=== PATIENT | female | born 1965 | race Two or more races ===

== ENCOUNTER 2025-05-22 07:18 | Emergency (ER) | payer MEDICAID, OTHER ==
[~2025-05-22] VITALS: Ht 149.9 cm; Wt 58.0 kg
--- NOTE | 2025-05-22 07:31 | ECG ---
[facility] Test Date: 2025-05-22 Test Time: 07:30:03 Pat Name: BROOKS BACA Department: Room: Gender: F Painting Manager: CARMELO : 1965 Requested By: KATHY DE LA TORRE Order Number: [id number] Reading MD: Alex Carmichael Measurements Intervals [place] Rate: 101 P: 70 VT: 127 QRS: 40 QRSD: 70 T: 63 QT: 356 QTc: 462 Interpretive Statements Sinus tachycardia Probable left atrial enlargement Baseline wander in lead(s) I,II,aVR,V2 Electronically Signed On 05-22-2025 15:09:01 PST by Alex Carmichael Please click the below link to view image of tracing.
--- NOTE | 2025-05-22 07:54 | ED.PDOC ---
History of Present Illness HPI Comments 59-year-old male presents to the ED with a chief complaint of dizziness onset 1 day. Patient states he has been experiencing dizziness, neck pain, headache for the past day, worsen this morning. Upon ED arrival, patient was hypertensive with BP of 163/93. Denies chest pain, shortness of breath, blurred vision, fever, chills, cough, congestion, nausea, vomiting, diarrhea, abdominal pain, dysuria, hematuria. No other symptoms or modifying factors present at this time. Chief Complaint: Dizziness Time Seen by MD: 07:40 Reviewed Notes: Medications, Allergies Allergies: Coded Allergies: NO KNOWN ALLERGIES (Unverified , 05/22/25) Information Source: Patient, Relative Mode of Arrival: Ambulatory Severity: Moderate Timing: Hours Duration: Since onset Prehospital treatment: None Past Medical History PAST MEDICAL HISTORY: DM, HTN Surgical History: Denies all surgeries Family History Family History: Reviewed,noncontributory to illness, No family hx of Cancer, No family hx of DM, No family hx of Heart sawyer, No family hx of HTN, No family hx ofKidney sawyer, No family hx of Liver sawyer, No family hx of Lung sawyer, No family hx of Stroke Social History Smoker: Non-Smoker Alcohol: Denies ETOH Use Drugs: Denies Drug Use Lives In: Home Constitutional: denies: chills, diaphoresis, fatigue, fever, malaise, sweats, weakness, others EENTM: denies: blurred vision, double vision, ear bleeding, ear discharge, ear drainage, ear pain, ear ringing, eye pain, eye redness, hearing loss, mouth pain, mouth swelling, nasal discharge, nose bleeding, nose congestion, nose pain, photophobia, tearing, throat pain, throat swelling, voice changes, others Respiratory: denies: cough, hemoptysis, orthopnea, SOB at rest, shortness of breath, SOB with excertion, stridor, wheezing, others Cardiovascular: denies: chest pain, dizzy spells, diaphoresis, Dyspnea on exertion, edema, irregular heart beat, left arm pain, lightheadedness, palpitations, PND, syncope, others Gastrointestinal: denies: abdomen distended, abdominal pain, blood streaked bowels, constipated, diarrhea, dysphagia, difficulty swallowing, hematemesis, melena, nausea, poor appetite, poor fluid intake, rectal bleeding, rectal pain, vomiting, others Neurological: reports: dizziness, headache; denies: fainting, left sided numb ness, left sided weakness, numbness, paresthesia, pre-existing deficit, right sided numbness, right sided weakness, seizure, speech problems, tingling, tremors, weakness, others Musculoskeletal: reports: neck pain; denies: back pain, gout, joint pain, joint swelling, muscle pain, muscle stiffness, others Integumetry: denies: bruises, change in color, change in hair/nails, dryness, laceration, lesions, lumps, rash, wounds, others Allergic/Immunocompromised: denies: Difficulty Healing, Frequent Infections, Hives, Itching, others Hematologic/Lymphatic: denies: anemia, blood clots, easy bleeding, easy bruising, swollen glands, others Endocrine: denies: excessive hunger, excessive sweating, excessive thirst, excessive urination, flushing, intolerance to cold, intolerance to heat, unexplained weight gain, unexplained weight loss, others Psychiatric: denies: anxiety, bipolar disorder, depression, hopeless, panic disorder, schizophrenia, sleepless, suicidal, others All Other Systems: Reviewed and Negative Physical Exam General Appearance: Moderate Distress, Normal HEENT: Normal ENT Inspection, Pharynx Normal, TMs Normal Neck: Full Range of Motion, Non-Tender, Normal, Normal Inspection Respiratory: Chest Non-Tender, Lungs Clear, No Accessory Muscle Use, No Respiratory Distress, Normal Breath Sounds Cardiovascular: No Edema, No JVD, No Murmur, No Gallop, Normal Peripheral Pulses, Regular Rate/Rhythm Breast Exam: Deferred Gastrointestinal: No Organomegaly, Non Tender, No Pulsatile Mass, Normal Bowel Sounds, Soft Genitalia: Deferred Pelvic: Deferred Rectal: Deferred Extremities: No calf tenderness, Normal capillary refill, Normal inspection, Normal range of motion, Non-tender, No pedal edema Musculoskeletal : Apperance: Normal Neurologic: Alert, 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 Was a procedure done?: No EKG EKG : Pulse Rate (adult): 101 Cardiac Rhythm: ST Differential Dx Considerations may include: Anemia Electrolyte imbalance X-Ray, Labs, Meds, VS Vital Signs Date Time Temp Pulse Resp B/P (MAP) Pulse Ox O2 Delivery O2 Flow Rate FiO2 05/22/25 10:07 98.1 76 16 143/73 (96) 98 98.1 05/22/25 08:14 98.1 88 18 138/94 (109) 99 98.1 05/22/25 07:54 101 05/22/25 07:30 101 05/22/25 07:20 98.3 106 16 163/93 100 98.3 Lab Test 05/22/25 09:19 05/22/25 07:59 05/22/25 07:33 Range/Units Urine Color Light-yellow Yellow Urine Clarity Clear Clear Urine pH 6.0 5.0-9.0 Urine Specific [place] 1.010 1.001-1.035 Urine Protein Negative Negative Urine Ketones Negative Negative Urine Blood Negative Negative /uL Urine Nitrite Negative Negative Urine Bilirubin Negative Negative Urine Urobilinogen Normal Negative mg/dL Urine Leukocyte Esterase 1+ Negative /uL Urine RBC 1 0 - 4 /hpf Urine Microscopic WBC 3 0-5 /HPF Urine Squamous Epithelial Cells Few <5 /hpf Urine Bacteria None seen None Seen /hpf Urine Mucus Few None Seen Urine Glucose Normal Normal mg/dL White Blood Count 12.1 H 4.4-10.8 10^3/uL Red Blood Count 4.73 4.5-5.90 10^6/uL Hemoglobin 12.9 L 13.5-17.5 g/dL Hematocrit 39.5 L 41.0-53.0 % Mean Corpuscular Volume 83.6 80.0-100.0 fL Mean Corpuscular Hemoglobin 27.2 L 28.0-32.0 pg Mean Corpuscular Hemoglobin Concent 32.5 32.0-36.0 g/dL Red Cell Distribution Width 13.6 11.8-14.3 % Platelet Count 386 140-450 10^3/uL Mean Platelet Volume 8.1 6.9-10.8 fL Neutrophils (%) (Auto) 83.8 H 37.0-80.0 % Lymphocytes (%) (Auto) 11.3 10.0-50.0 % Monocytes (%) (Auto) 4.5 0.0-12.0 % Eosinophils (%) (Auto) 0.1 0.0-7.0 % Basophils (%) (Auto) 0.3 0.0-2.0 % Neutrophils # (Auto) 10.2 H 1.6-8.6 10 ^3/uL Lymphocytes # (Auto) 1.4 0.4-5.4 10 ^3/uL Monocytes # (Auto) 0.5 0-1.3 10 ^3/uL Eosinophils # (Auto) 0 0-0.8 10 ^3/uL Basophils # (Auto) 0 0-0.2 10 ^3/uL Nucleated Red Blood Cells 0.0 % Sodium Level 140 136-145 mmol/L Potassium Level 4.0 3.5-5.1 mmol/L Chloride Level 105 98-107 mmol/L Carbon Dioxide Level 26 20-31 mmol/L Anion Gap 9 5-15 Blood Urea Nitrogen 7 L 9-23 mg/dL Creatinine 0.65 L 0.700-1.30 mg/dL Glomerular Filtration Rate Calc 109 >90 mL/min BUN/Creatinine Ratio 10.8 10.0-20.0 Serum Glucose 187 H 74-106 mg/dL Calcium Level 9.4 8.7-10.4 mg/dL POC Glucose 182 H 70-106 mg/dl Current Medications Medications (Trade) Dose Ordered Sig/Toya Route Start Time Stop Time Status Last Admin Sodium Chloride 1,000 ml @ 1,000 mls/hr Q1H ONCE IV 05/22/25 09:15 05/22/25 10:14 DC 05/22/25 09:19 Ceftriaxone Sodium 50 ml @ 100 mls/hr ONCE ONCE IV 05/22/25 09:15 05/22/25 09:44 DC 05/22/25 09:19 Patient alert. Came in because of generalized symptoms. Vitals stable. Answering questions. Neurological examination pristine. Serum glucose elevated. WBC slightly elevated pain No leg swelling. Saturation pristine on room air. Possible enteritis. Possibly urinary tract infection. Was given prescription of Macrobid antibiotic. Explained to the patient. Was told to follow up with her primary care physician. Was told to come back if there is any problem. Time of 1ST Reevaluation: 08:10 Reevaluation 1ST: Unchanged Patient Education/Counseling: Diagnosis, Treatment, Prognosis Family Education/Counseling: Diagnosis, Treatment, Prognosis SEPSIS Sepsis Screen Date sepsis recognized/suspect: May 22, 2025 Time Sepsis recognized/suspect: 722 Recent Procedure: No On Antibiotic Therapy: No Respiratory Rate >20: No Heart Rate >90: Yes Temp<36 C (96.8 F) or >38.3 C: No SBP <90 or MAP <65 mmHG: No New Acute Mental Status Change: No Is the patient on CPAP, BIPAP,: No Vital Signs Date Time Temp Pulse Resp B/P (MAP) Pulse Ox O2 Delivery O2 Flow Rate FiO2 05/22/25 10:07 98.1 76 16 143/73 (96) 98 98.1 05/22/25 08:14 98.1 88 18 138/94 (109) 99 98.1 05/22/25 07:54 101 05/22/25 07:30 101 05/22/25 07:20 98.3 106 16 163/93 100 98.3 Laboratory Tests Test 05/22/25 07:59 White Blood Count 12.1 10^3/uL (4.4-10.8) H Medications Medications Dose Ordered Sig/Toya Route Start Time Stop Time Status Last Admin Dose Admin Ceftriaxone Sodium 50 ml @ 100 mls/hr ONCE ONCE IV 05/22/25 09:15 05/22/25 09:44 DC 05/22/25 09:19 Sodium Chloride 1,000 ml @ 1,000 mls/hr Q1H ONCE IV 05/22/25 09:15 05/22/25 10:14 DC 05/22/25 09:19 Departure 1 Departure Time of Disposition: 09:05 Impression: Primary Impression: Uncontrolled diabetes mellitus Qualified Codes: E13.65 - Other specified diabetes mellitus with hyperglycemia Additional Impressions: Urinary tract infection Qualified Codes: N30.00 - Acute cystitis without hematuria Autonomic disorder Disposition: 01 HOME / SELF CARE / HOMELESS Condition: Good e-Prescriptions Nitrofurantoin Monohydrate Mac (Macrobid) 100 Mg Cap 100 MG PO BID for 7 Days, #14 CAP Prov: KATHY DE LA TORRE MD 05/22/25 Discharged With: Self Critical Care Note Critical Care Time?: No Stability Stability form required: No Heart Score Heart Score: Heart Score Response (Comments) Value History N/A 0 EKG N/A 0 Age N/A 0 Risk Factors N/A 0 Troponin N/A 0 Total 0 I personally scribed for KATHY DE LA TORRE MD ([email or web address]) on 05/22/25 at 07:54. Electronically submitted by Nohemi Bellamy ([email or web address]). KATHY DE LA TORRE MD May 22, 2025 07:54
[2025-05-22 08:21] LABS: Hematocrit 39.5 % (41.0-53.0); Hemoglobin 12.9 g/dL (13.5-17.5); Mean Corpuscular Hemoglobin 27.2 pg (28.0-32.0); Mean Corpuscular Volume 83.6 fL (80.0-100.0); Nucleated Red Blood Cells % 0.0 %
[2025-05-22 08:25] LABS: Chloride 105 mmol/L (98-107); Potassium 4.0 mmol/L (3.5-5.1); Sodium 140 mmol/L (136-145)
[2025-05-22 08:26] LABS: Anion Gap 9 (5-15); Calcium 9.4 mg/dL (8.7-10.4); Carbon Dioxide 26 mmol/L (20-31)
[2025-05-22 08:31] LABS: BUN/Creatinine Ratio 10.8 (10.0-20.0)
[2025-05-22 08:33] LABS: Blood Urea Nitrogen 7 mg/dL (9-23); Glucose 187 mg/dL (74-106)
[2025-05-22] MEDS: SODIUM CHLORIDE 0.9% 1,000 ML IV ONE (09:19)
[2025-05-22 09:54] LABS: Urine Protein, UAD Negative (Negative)
[2025-05-22 10:07] VITALS: BP 143/73; PULSE 76; RESP 16; TEMP 98.1; O2SAT 98
[2025-05-22] MEDS ORDERED: NITR-87 PO (10:20)
== END 2025-05-22 11:42 | disposition home or self-care (01) ==
LOC: ER 07:18 → EDSEX 07:18 → ER 11:42
DX: E11.65 Type 2 diabetes mellitus with hyperglycemia (principal); N39.0 Urinary tract infection, site not specified; G90.9 Disorder of the autonomic nervous system, unspecified; I10 Essential (primary) hypertension
CPT/HCPCS: 36415; 80048; 81001; 82947; 85025; 93005; 96365; 99284; J0696; J7030; 82962